=== PATIENT | male | born 1950 | race Caucasian/White ===

== ENCOUNTER 2021-05-15 15:26 | Inpatient (IN) | payer MEDICAID, OTHER ==
[~2021-05-15] VITALS: Ht 162.6 cm; Wt 52.3 kg
[2021-05-15] MEDS ORDERED: ACET-2247 PO (16:40)
[2021-05-15] MEDS ORDERED: ASPI-1444 PO (16:40)
[2021-05-15] MEDS ORDERED: METO25 PO (16:40)
[2021-05-15] MEDS ORDERED: PARO-38 PO (16:40)
[2021-05-15] MEDS ORDERED: LORA-999 PO (16:40)
[2021-05-15] MEDS ORDERED: CLON-592 PO (16:40)
[2021-05-15] MEDS ORDERED: LISI-892 PO (16:40)
[2021-05-15 16:49] LABS: BASOPHILS % (AUTO) 0.4 % (0.0-2.0); HEMATOCRIT 43.5 % (41-53); MEAN CORPUSCULAR HEMOGLOBIN 30.2 pg (26.0-34.0); MEAN CORPUSCULAR HGB CONC 34.4 G/dL (31.0-37.0); MEAN CORPUSCULAR VOLUME 88 fL (80-100); MONOCYTES # (AUTO) 0.4 K/uL (0.1-1.0); MONOCYTES % (AUTO) 6.6 % (2.0-9.0); NEUTROPHILS # (AUTO) 3.9 K/uL (1.8-7.7); PLATELET COUNT (AUTO) 234 K/uL (150-450); RED BLOOD CELL COUNT(AUTO) 4.95 MIL/uL (4.50-5.90); RED CELL DISTRIBUTION WIDTH 13.9 % (11.5-14.5)
[2021-05-15 17:04] LABS: ANION GAP 7 mmol/L (8-16); CALCIUM, TOTAL 9.1 mg/dL (8.8-10.5); CARBON DIOXIDE 29 mmol/L (22-29); CHLORIDE 96 mmol/L (98-107); CREATININE 0.84 mg/dL (0.60-1.30); GLOMERULAR FILTR. RATE CALC > 60 mL/min (>60); GLUCOSE,RANDOM 157 mg/dL (70-110); POTASSIUM 4.2 mmol/L (3.5-5.1); SODIUM SERUM 132 mmol/L (136-145); UREA NITROGEN, BLOOD 8 mg/dL (7-18)
[2021-05-15 17:06] LABS: ALANINE AMINOTRANSFERASE 18 U/L (12-78); ALBUMIN 4.1 g/dL (3.4-5.0); ALKALINE PHOSPHATASE 69 U/L (46-116); ASPARTATE AMINOTRANSFERASE 20 U/L (15-37); BILIRUBIN,TOTAL 0.6 mg/dL (0.1-1.0); TOTAL PROTEIN, SERUM 7.4 g/dL (6.4-8.2)
[2021-05-15 17:22] LABS: AMPHET/METH SCREEN,URINE NEGATIVE (NEGATIVE); BARBITURATE SCREEN, URINE NEGATIVE (NEGATIVE); BENZODIAZEPINES SCREEN,URINE POSITIVE (NEGATIVE); CANNABINOID SCREEN,URINE NEGATIVE (NEGATIVE); COCAINE SCREEN,URINE NEGATIVE (NEGATIVE); METHADONE SCREEN, URINE NEGATIVE (NEGATIVE); OPIATE SCREEN,URINE NEGATIVE (NEGATIVE); PHENCYCLIDINE SCREEN,URINE NEGATIVE (NEGATIVE)
[2021-05-15 20:20] LABS: COVID AG,FIA SOURCE NASOPHARYNGEAL
[2021-05-15] MEDS ORDERED: LORazepam 2 MG TABLET PO PRN (20:30)
[2021-05-15] MEDS ORDERED: OLANZapine 5 MG RAPDIS TABLET PO PRN (20:30)
[2021-05-15 21:00] VITALS: BP 128/72
[2021-05-15] MEDS: ZOLPIDEM TARTRATE 10 MG TABLET PO PRN (22:44)
[2021-05-16] MEDS: ASPIRIN 81 MG CHEWABLE TABLET PO SCH (08:38)
[2021-05-16] MEDS: LISINOPRIL 5 MG TABLET PO SCH (08:38)
[2021-05-16] MEDS: METOPROLOL TARTRATE 25 MG TABLET PO SCH (08:38)
[2021-05-16] MEDS ORDERED: MAGNESIUM HYDROXIDE SUSPENSION 30 ML UDCUP PO PRN (09:45)
[2021-05-16] MEDS ORDERED: HydrOXYzine PAMOATE 50 MG CAPSULE PO PRN (09:45)
[2021-05-16] MEDS ORDERED: ACETAMINOPHEN 325 MG TABLET PO PRN (09:45)
[2021-05-16] MEDS ORDERED: LOPERAMIDE HCL 2 MG CAPSULE PO PRN (09:45)
[2021-05-16] MEDS ORDERED: DULoxetine HCL 20 MG CAPSULE PO ONE (09:45)
[2021-05-16] MEDS ORDERED: MAG HYDROX/AL HYDROX/SIMETH ES 30 ML SUSPENSION UDCUP PO PRN (09:45)
[2021-05-16] MEDS ORDERED: GuaiFENesin/D-METHORPHAN [SUGAR-FREE] 200-20MG/10 ML SYRUP UDCUP PO PRN (09:45)
[2021-05-16] MEDS ORDERED: PROMETHAZINE HCL 25 MG TABLET PO PRN (09:45)
[2021-05-16] MEDS ORDERED: TUBERCULIN, PURIFIED PROTEIN DERIVATIVE 5 TU/0.1 ML SYRINGE ID ONE (09:45)
[2021-05-16 10:14] VITALS: BP 129/95
[2021-05-16 16:28] VITALS: BP 104/71
[2021-05-16] MEDS: THIAMINE 100 MG TABLET PO SCH (16:31)
[2021-05-16] MEDS: MELATONIN 5 MG TABLET PO SCH (20:15)
[2021-05-16] MEDS ORDERED: MIRTAZAPINE 15 MG TABLET PO ONE (21:30)
[2021-05-16] MEDS: ZOLPIDEM TARTRATE 10 MG TABLET PO PRN (22:48)
[2021-05-17 07:01] LABS: HEMOGLOBIN A1C 6.2 % (3.8-5.6)
[2021-05-17 07:13] LABS: CHOL/HDL RATIO 2.7 (4.2-7.3); PHOSPHORUS 4.5 mg/dL (2.5-4.9); THYROID STIMULATING HORMONE 1.27 uIU/mL (0.36-3.74)
[2021-05-17] MEDS: MULTIVITAMINS WITH MINERALS, THERAPEUTIC TABLET PO SCH (08:04)
[2021-05-17] MEDS: LISINOPRIL 5 MG TABLET PO SCH (08:04)
[2021-05-17] MEDS: ASPIRIN 81 MG CHEWABLE TABLET PO SCH (08:04)
[2021-05-17] MEDS: FOLIC ACID 1 MG TABLET PO SCH (08:04)
[2021-05-17] MEDS: THIAMINE 100 MG TABLET PO SCH ×2 (08:04→17:00)
[2021-05-17] MEDS: METOPROLOL TARTRATE 25 MG TABLET PO SCH (08:04)
[2021-05-17] MEDS: OMEGA-3/DHA/EPA/FISH OIL 1,000 MG CAPSULE PO SCH (08:04)
[2021-05-17 08:05] VITALS: BP 111/72
[2021-05-17] MEDS ORDERED: DULoxetine HCL 20 MG CAPSULE PO SCH (09:00)
[2021-05-17 16:00] VITALS: BP 106/74
[2021-05-17] MEDS: MELATONIN 5 MG TABLET PO SCH (21:15)
[2021-05-17] MEDS: MIRTAZAPINE 15 MG TABLET PO SCH (21:15)
[2021-05-17] MEDS: DIVALPROEX SODIUM 500 MG ER TABLET PO SCH (21:15)
[2021-05-18 08:03] VITALS: BP 153/94
[2021-05-18] MEDS: FOLIC ACID 1 MG TABLET PO SCH (08:12)
[2021-05-18] MEDS: ASPIRIN 81 MG CHEWABLE TABLET PO SCH (08:12)
[2021-05-18] MEDS: OMEGA-3/DHA/EPA/FISH OIL 1,000 MG CAPSULE PO SCH (08:12)
[2021-05-18] MEDS: MULTIVITAMINS WITH MINERALS, THERAPEUTIC TABLET PO SCH (08:12)
[2021-05-18] MEDS: THIAMINE 100 MG TABLET PO SCH ×2 (08:12→17:34)
[2021-05-18] MEDS: METOPROLOL TARTRATE 25 MG TABLET PO SCH (08:12)
[2021-05-18] MEDS: LISINOPRIL 5 MG TABLET PO SCH (08:12)
[2021-05-18] MEDS ORDERED: DULoxetine HCL 30 MG CAPSULE PO SCH (09:00)
[2021-05-18 16:00] VITALS: BP 145/84
[2021-05-18] MEDS: DIVALPROEX SODIUM 500 MG ER TABLET PO SCH (20:45)
[2021-05-18] MEDS: MIRTAZAPINE 15 MG TABLET PO SCH (20:46)
[2021-05-18] MEDS: MELATONIN 5 MG TABLET PO SCH (20:46)
[2021-05-18] MEDS ORDERED: MIRTAZAPINE 15 MG TABLET PO ONE (21:00)
[2021-05-19 08:58] VITALS: BP 150/84
[2021-05-19] MEDS: THIAMINE 100 MG TABLET PO SCH ×2 (09:13→16:22)
[2021-05-19] MEDS: OMEGA-3/DHA/EPA/FISH OIL 1,000 MG CAPSULE PO SCH (09:13)
[2021-05-19] MEDS: ASPIRIN 81 MG CHEWABLE TABLET PO SCH (09:13)
[2021-05-19] MEDS: FOLIC ACID 1 MG TABLET PO SCH (09:14)
[2021-05-19] MEDS: DULoxetine HCL 20 MG CAPSULE PO SCH (09:14)
[2021-05-19] MEDS: MULTIVITAMINS WITH MINERALS, THERAPEUTIC TABLET PO SCH (09:15)
[2021-05-19] MEDS: LISINOPRIL 5 MG TABLET PO SCH (09:16)
[2021-05-19] MEDS: METOPROLOL TARTRATE 25 MG TABLET PO SCH (09:16)
[2021-05-19 16:22] VITALS: BP 136/77
[2021-05-19] MEDS: MELATONIN 5 MG TABLET PO SCH (20:05)
[2021-05-19] MEDS: DIVALPROEX SODIUM 500 MG ER TABLET PO SCH (20:06)
[2021-05-19] MEDS: MIRTAZAPINE 15 MG TABLET PO SCH (20:06)
[2021-05-19] MEDS ORDERED: MIRTAZAPINE 15 MG TABLET PO SCH (21:00)
[2021-05-20 09:43] VITALS: BP 117/67
[2021-05-20] MEDS: LISINOPRIL 5 MG TABLET PO SCH (09:53)
[2021-05-20] MEDS: THIAMINE 100 MG TABLET PO SCH ×2 (09:53→16:18)
[2021-05-20] MEDS: ASPIRIN 81 MG CHEWABLE TABLET PO SCH (09:53)
[2021-05-20] MEDS: METOPROLOL TARTRATE 25 MG TABLET PO SCH (09:54)
[2021-05-20] MEDS: DULoxetine HCL 20 MG CAPSULE PO SCH (09:54)
[2021-05-20] MEDS: MULTIVITAMINS WITH MINERALS, THERAPEUTIC TABLET PO SCH (09:54)
[2021-05-20] MEDS: FOLIC ACID 1 MG TABLET PO SCH (09:54)
[2021-05-20] MEDS: OMEGA-3/DHA/EPA/FISH OIL 1,000 MG CAPSULE PO SCH (09:54)
[2021-05-20 16:57] VITALS: BP 112/73
[2021-05-20] MEDS: DIVALPROEX SODIUM 500 MG ER TABLET PO SCH (21:34)
[2021-05-20] MEDS: MIRTAZAPINE 15 MG TABLET PO SCH (21:35)
[2021-05-20] MEDS: MELATONIN 5 MG TABLET PO SCH (21:35)
[2021-05-21] MEDS: MULTIVITAMINS WITH MINERALS, THERAPEUTIC TABLET PO SCH (08:28)
[2021-05-21] MEDS: METOPROLOL TARTRATE 25 MG TABLET PO SCH ×2 (08:28→09:00)
[2021-05-21] MEDS: LISINOPRIL 5 MG TABLET PO SCH ×2 (08:28→09:00)
[2021-05-21] MEDS: FOLIC ACID 1 MG TABLET PO SCH (08:28)
[2021-05-21] MEDS: THIAMINE 100 MG TABLET PO SCH ×2 (08:28→16:24)
[2021-05-21] MEDS: DULoxetine HCL 20 MG CAPSULE PO SCH (08:28)
[2021-05-21] MEDS: OMEGA-3/DHA/EPA/FISH OIL 1,000 MG CAPSULE PO SCH (08:28)
[2021-05-21] MEDS: ASPIRIN 81 MG CHEWABLE TABLET PO SCH (08:28)
[2021-05-21 09:21] VITALS: BP 102/69
[2021-05-21 16:00] VITALS: BP 127/82
[2021-05-21] MEDS: MIRTAZAPINE 15 MG TABLET PO SCH (20:13)
[2021-05-21] MEDS: DIVALPROEX SODIUM 500 MG ER TABLET PO SCH (20:13)
[2021-05-21] MEDS: MELATONIN 5 MG TABLET PO SCH (20:13)
[2021-05-22] MEDS: OMEGA-3/DHA/EPA/FISH OIL 1,000 MG CAPSULE PO SCH (08:23)
[2021-05-22] MEDS: DULoxetine HCL 20 MG CAPSULE PO SCH (08:23)
[2021-05-22] MEDS: THIAMINE 100 MG TABLET PO SCH ×2 (08:23→16:19)
[2021-05-22] MEDS: METOPROLOL TARTRATE 25 MG TABLET PO SCH (08:23)
[2021-05-22] MEDS: FOLIC ACID 1 MG TABLET PO SCH (08:23)
[2021-05-22] MEDS: ASPIRIN 81 MG CHEWABLE TABLET PO SCH (08:23)
[2021-05-22] MEDS: MULTIVITAMINS WITH MINERALS, THERAPEUTIC TABLET PO SCH (08:23)
[2021-05-22] MEDS: LISINOPRIL 5 MG TABLET PO SCH (08:23)
[2021-05-22 09:45] VITALS: BP 126/90
[2021-05-22 12:33] LABS: COVID AG,FIA SOURCE NASOPHARYNGEAL
[2021-05-22 16:34] VITALS: BP 103/69
[2021-05-22] MEDS: DIVALPROEX SODIUM 500 MG ER TABLET PO SCH (20:10)
[2021-05-22] MEDS: MIRTAZAPINE 15 MG TABLET PO SCH (20:12)
[2021-05-22] MEDS: MELATONIN 5 MG TABLET PO SCH (22:37)
[2021-05-23] MEDS: DULoxetine HCL 60 MG CAPSULE PO SCH (08:53)
[2021-05-23] MEDS: METOPROLOL TARTRATE 25 MG TABLET PO SCH (08:53)
[2021-05-23] MEDS: LISINOPRIL 5 MG TABLET PO SCH (08:53)
[2021-05-23] MEDS: ASPIRIN 81 MG CHEWABLE TABLET PO SCH (08:53)
[2021-05-23] MEDS: OMEGA-3/DHA/EPA/FISH OIL 1,000 MG CAPSULE PO SCH (08:53)
[2021-05-23] MEDS: THIAMINE 100 MG TABLET PO SCH ×2 (08:53→16:13)
[2021-05-23] MEDS: FOLIC ACID 1 MG TABLET PO SCH (08:53)
[2021-05-23] MEDS: MULTIVITAMINS WITH MINERALS, THERAPEUTIC TABLET PO SCH (10:02)
[2021-05-23 12:15] VITALS: BP 113/82
[2021-05-23 16:00] VITALS: BP 100/65
[2021-05-23] MEDS: MIRTAZAPINE 15 MG TABLET PO SCH (20:12)
[2021-05-23] MEDS: DIVALPROEX SODIUM 500 MG ER TABLET PO SCH (20:12)
[2021-05-23] MEDS: MELATONIN 5 MG TABLET PO SCH (20:13)
[2021-05-23] MEDS ORDERED: DULO60CA45 PO (20:18)
[2021-05-23] MEDS ORDERED: MIRT-89 PO (20:18)
[2021-05-23] MEDS ORDERED: OMEG-108 PO (20:18)
[2021-05-23] MEDS ORDERED: DIVA-80 PO (20:18)
[2021-05-23] MEDS ORDERED: MELA5TAB40 PO (20:18)
[2021-05-23] MEDS: ZOLPIDEM TARTRATE 10 MG TABLET PO PRN (22:39)
[2021-05-24] MEDS: OMEGA-3/DHA/EPA/FISH OIL 1,000 MG CAPSULE PO SCH (08:44)
[2021-05-24] MEDS: THIAMINE 100 MG TABLET PO SCH (08:44)
[2021-05-24] MEDS: ASPIRIN 81 MG CHEWABLE TABLET PO SCH (08:44)
[2021-05-24] MEDS: MULTIVITAMINS WITH MINERALS, THERAPEUTIC TABLET PO SCH (08:44)
[2021-05-24] MEDS: METOPROLOL TARTRATE 25 MG TABLET PO SCH (08:45)
[2021-05-24] MEDS: DULoxetine HCL 60 MG CAPSULE PO SCH (08:45)
[2021-05-24] MEDS: FOLIC ACID 1 MG TABLET PO SCH (08:45)
[2021-05-24] MEDS: LISINOPRIL 5 MG TABLET PO SCH (08:45)
[2021-05-24 09:18] VITALS: BP 112/71
[2021-05-24] MEDS ORDERED: ASPI-1444 PO (22:24)
[2021-05-24] MEDS ORDERED: METO-408 PO (22:24)
[2021-05-24] MEDS ORDERED: LISI-660 PO (22:24)
== END 2021-05-24 14:50 | disposition home or self-care (01) | DRG 750 ==
LOC: EMS 15:26 → 3EI 20:00
PROVIDERS: ADMIT Psychiatry & Neurology Psychiatry; ATTEND Psychiatry & Neurology Psychiatry
DX: F25.0 Schizoaffective disorder, bipolar type (principal); R45.851 Suicidal ideations; Z59.00 Homelessness unspecified; F17.210 Nicotine dependence, cigarettes, uncomplicated; I10 Essential (primary) hypertension; J44.9 Chronic obstructive pulmonary disease, unspecified; F41.9 Anxiety disorder, unspecified; Z79.899 Other long term (current) drug therapy
CPT/HCPCS: 80053; 80061; 80164; 83036; 83735; 84100; 84436; 84443; 85025; 86592; 93005; 99285; G0480; Q9967